=== PATIENT | female | born 1980 | race Caucasian/White ===

== ENCOUNTER 2019-10-07 20:33 | Emergency (ER) | payer SELFPAY ==
[~2019-10-07] VITALS: Ht 165.1 cm; Wt 61.7 kg
[2019-10-07 21:17] VITALS: BP 152/94; Ht 165.1 cm; Wt 61.7 kg
== END 2019-10-07 21:47 | disposition left against medical advice (07) ==
LOC: ED 20:33
DX: Z53.21 Procedure and treatment not carried out due to patient leaving prior to being seen by health care provider (principal)